=== PATIENT | female | born 1945 | race Caucasian/White ===

== ENCOUNTER 2016-06-26 10:55 | Emergency (ER) | payer BC ==
--- NOTE | 2016-06-26 11:08 | ER Document Report ---
ED Medical Screen (RME) - General Stated Complaint: BLOOD PRESSURE CONCERNS Mode of Arrival: Ambulatory Information source: Patient Notes: 70 y/o F presents to ED c/o intermittent elevated BP. States has checked BP at home and has been elevated in the evenings and the mornings over the last 2 days. States takes BP meds once a day in the mornings. Denies headache, vision changes, chest pain, shortness of breath, or decreased urine output. I have greeted and performed a rapid initial assessment of this patient. A comprehensive ED assessment and evaluation of the patient, analysis of test results and completion of the medical decision making process will be conducted by additional ED providers. Physical Exam - Vital signs Vitals: Temp Pulse Resp BP Pulse Ox 98.0 F 73 20 155/94 H 98 06/26/16 11:02 06/26/16 11:02 06/26/16 11:02 06/26/16 11:02 06/26/16 11:02 - General General appearance: Appears well, Alert In distress: None - Respiratory Respiratory status: No respiratory distress - Neurological Neuro grossly intact: Yes Cognition: Normal Orientation: AAOx4 Salome Coma Scale Eye Opening: Spontaneous Salome Coma Scale Verbal: Oriented Clarence Coma Scale Motor: Obeys Commands Clarence Coma Scale Total: 15 Speech: Normal Motor strength normal: LUE, RUE, LLE, RLE Course - Vital Signs Vital signs: Temp Pulse Resp BP Pulse Ox 98.0 F 73 20 155/94 H 98 06/26/16 11:02 06/26/16 11:02 06/26/16 11:02 06/26/16 11:02 06/26/16 11:02
== END 2016-06-26 12:42 | disposition left against medical advice (07) ==
LOC: ER 10:55
DX: Z53.9 Procedure and treatment not carried out, unspecified reason (principal); R03.0 Elevated blood-pressure reading, without diagnosis of hypertension
CPT/HCPCS: 99283

== ENCOUNTER 2017-09-01 10:30 | Inpatient (IN) | payer MEDICARE, OTHER ==
--- NOTE | 2017-09-01 10:47 | ER Document Report ---
ED Fall - General Stated Complaint: FALL LEFT ANKLE INJURY Time Seen by Provider: 09/01/17 10:42 Information source: Patient Notes: 71-year-old female who states she was walking down a step and accidentally "twisted" her left ankle. She states it was "pointing the other way". She also states she landed on her right knee but denies any pain other than to her left ankle and lower tibia/fibula. She denies any lightheadedness, dizziness, chest pain, or shortness of breath causing the fall. She did have some bleeding from an open wound to the left lateral ankle and was provided pain medications and a gram of Rocephin. Patient is unsure when her last tetanus was provided. TRAVEL OUTSIDE OF THE [place] IN LAST 30 DAYS: No - HPI Occurred: Just prior to arrival Where: Home Context: Fell from standing Associated symptoms: None Location of injury/pain: Other - See above Quality of pain: Achy Severity: Mild Pain Level: 1 Prehospital interventions: Other - See above - Related data Allergies/Adverse Reactions: No Known Allergies Allergy (Verified 09/01/17 11:06) Past Medical History - General Information source: Patient - Social History Smoking Status: Unknown if Ever Smoked Cigarette use (# per day): No Chew tobacco use (# tins/day): No Smoking Education Provided: No Frequency of alcohol use: None Family History: Reviewed & Not Pertinent, Other Patient has suicidal ideation: No Patient has homicidal ideation: No - Past Medical History Cardiac Medical History: Reports: Other - See above Renal/ Medical History: Denies: Hx Peritoneal Dialysis Review of Systems - Review of Systems Constitutional: denies: Fever Cardiovascular: denies: Chest pain, Palpitations Respiratory: denies: Cough, Hemoptysis, Short of breath Gastrointestinal: denies: Nausea, Vomiting Musculoskeletal: Deformity Skin: Other - See above Neurological/Psychological: Other - See above -: Yes All other systems reviewed and negative Physical Exam - Vital signs Vitals: Temp Pulse Resp BP Pulse Ox 98.1 F 72 16 130/74 H 95 09/01/17 10:45 09/01/17 10:45 09/01/17 10:45 09/01/17 10:45 09/01/17 10:45 Notes: Reviewed vital signs and nursing note as charted by RN. CONSTITUTIONAL: Alert and oriented and responds appropriately to questions. Well -appearing; well-nourished HEAD: Normocephalic; atraumatic NECK: Supple without meningismus; non-tender CARD: Regular rate and rhythm; no murmurs RESP: Normal chest excursion without splinting or tachypnea; breath sounds clear and equal bilaterally ABD/GI: Normal bowel sounds; non-distended; soft, non-tender BACK: The back appears normal and is non-tender to palpation EXT: Patient has some pain and swelling with no obvious deformity to the left ankle. There was a small oozing area of blood from the left anterior lateral aspect of the proximal ankle consistent with an open fracture SKIN: See above; also small abrasion to the right knee NEURO: Patient has some limited range of motion to the left ankle secondary to pain and injury. Neurovascularly intact with excellent pulses, toe movement, capillary refill, and sensation PSYCH: The patient's mood and manner are appropriate. Grooming and personal hygiene are appropriate. Course - Re-evaluation Re-evalutation: 09/01/17 10:46 Given the above history and physical examination we will order an x-ray of the left ankle as well as the tibia/fibula. We will attempt to immobilize the left leg and ankle and will place the patient in a splint after the x-ray has been performed. Given what most likely is an open fracture, orthopedics will be paged. I have added a CBC and chemistry secondary to what I believe will be operative management. 09/01/17 11:03 X-ray is recorded showing what appears to be a oblique fracture of the distal tibia/fibula with displacement. I have paged orthopedics. 09/01/17 11:08 I spoke with the orthopedic surgeon who was kind to help the patient. He believes 1 g of Rocephin is sufficient. He is asked me to place the patient into a splint. We will place a posterior with a stirrup splint admit the patient to his service. EKG shows a heart of 75, normal sinus rhythm, minimal left axis deviation, no obvious ST elevation or depression, flattening T waves in leads V3 through V5 with an inverted T-wave in 3 - Vital Signs Vital signs: Temp Pulse Resp BP Pulse Ox 98.1 F 72 16 130/74 H 95 09/01/17 10:45 09/01/17 10:45 09/01/17 10:45 09/01/17 10:45 09/01/17 10:45 Discharge - Discharge Clinical Impression: Open fracture of tibia and fibula, shaft Qualifiers: Encounter type: initial encounter Open fracture type: open type I or II Laterality: left Qualified Code(s): S82.202B - Unspecified fracture of shaft of left tibia, initial encounter for open fracture type I or II; S82.402B - Unspecified fracture of shaft of left fibula, initial encounter for open fracture type I or II; S82.402B - Unspecified fracture of shaft of left fibula, initial encounter for open fracture type I or II Condition: Fair Disposition: ADMITTED INPATIENT Admitting Provider: Tavon Moon Unit Admitted: Surgical Floor
[2017-09-01 11:20] LABS: ABSOLUTE EOSINOPHILS # (AUTO) 0.1 10^3/uL (0.0-0.6); ABSOLUTE MONOCYTES (AUTO) 0.5 10^3/uL (0.1-1.4); BASOPHILS % (AUTO) 0.5 % (0-2); EOSINOPHILS % (AUTO) 1.9 % (0-6); HEMATOCRIT 39.7 % (36.0-47.0); HEMOGLOBIN 13.6 g/dL (12.0-15.5); LYMPHOCYTES % (AUTO) 29.7 % (13-45); MEAN CORPUSCULAR HEMOGLOBIN 29.6 pg (27.0-33.4); MEAN CORPUSCULAR HGB CONC 34.3 g/dL (32.0-36.0); MEAN CORPUSCULAR VOLUME 86 fl (80-97); MONOCYTES % (AUTO) 7.6 % (3-13); PLATELET COUNT 198 10^3/uL (150-450); RED CELL DISTRIBUTION WIDTH 13.2 % (11.5-14.0); SEGMENTED NEUTROPHILS % (AUTO) 60.3 % (42-78); TOTAL CELLS COUNTED % (AUTO) 100 %; WHITE BLOOD COUNT 6.6 10^3/uL (4.0-10.5)
--- NOTE | 2017-09-01 11:20 | RADIOLOGY REPORT (SQ) ---
EXAM DESCRIPTION: ANKLE LEFT COMPLETE COMPLETED DATE/TIME: 09/01/2017 11:02 am REASON FOR STUDY: fall COMPARISON: None. NUMBER OF VIEWS: Three views. TECHNIQUE: AP, lateral, and oblique radiographic images acquired of the left ankle. LIMITATIONS: None. FINDINGS: MINERALIZATION: Normal. BONES: Acute spiral fractures of the distal left tibia and fibular diaphysis. Foreshortening and mil d medial displacement of the fracture site. Distal tibia fibular joint, ankle mortise intact. Small plantar calcaneal spur JOINTS: No tibiotalar joint effusion. No ankle mortise malalignment SOFT TISSUES: Small amount of soft tissue air at the fibular fracture site OTHER: No other significant finding. IMPRESSION: Distal tibia and distal fibula diaphysis fractures TECHNICAL DOCUMENTATION: JOB ID: [id number] [employer]- All Rights Reserved Reading location - IP/workstation name: [email or web address]
--- NOTE | 2017-09-01 11:21 | RADIOLOGY REPORT (SQ) ---
EXAM DESCRIPTION: TIBIA FIBULA LEFT COMPLETED DATE/TIME: 09/01/2017 11:02 am REASON FOR STUDY: 1, fall-ankle pain COMPARISON: None. NUMBER OF VIEWS: Two views. TECHNIQUE: Two radiographic images acquired of the left tibia and fibula to include the knee and ank le in at least one projection. LIMITATIONS: None. FINDINGS: MINERALIZATION: Normal. BONES: Acute comminuted spiral fractures of the distal diaphysis left tibia and fibula. Fibular butt erfly fragment. Mild over riding of fracture fragments with slight medial displacement of the fractu re fragments. SOFT TISSUES: No obvious swelling or foreign body. OTHER: Knee and ankle in the field of view are intact IMPRESSION: Acute comminuted spiral fractures of the distal diaphysis left tibia and fibula. Knee and ankle joint intact TECHNICAL DOCUMENTATION: JOB ID: [id number] [employer]- All Rights Reserved Reading location - IP/workstation name: [email or web address]
[2017-09-01] MEDS ORDERED: FENTANYL CITRATE INJ/PF 100 MCG/2 ML AMPUL IV ONE (11:22)
[2017-09-01 11:35] LABS: ANION GAP 10 (5-19); BLOOD UREA NITROGEN 15 mg/dL (7-20); CALCIUM 9.1 mg/dL (8.4-10.2); CARBON DIOXIDE 25 mmol/L (22-30); CHLORIDE 107 mmol/L (98-107); GLUCOSE 127 mg/dL (75-110); POTASSIUM 3.7 mmol/L (3.6-5.0); SODIUM 141.9 mmol/L (137-145)
--- NOTE | 2017-09-01 12:17 | RADIOLOGY REPORT (SQ) ---
EXAM DESCRIPTION: CHEST 2 VIEWS COMPLETED DATE/TIME: 09/01/2017 11:57 am REASON FOR STUDY: 1, preop COMPARISON: None. EXAM PARAMETERS: NUMBER OF VIEWS: two views TECHNIQUE: Digital Frontal and Lateral radiographic views of the chest acquired. RADIATION DOSE: NA LIMITATIONS: none FINDINGS: LUNGS AND PLEURA: No opacities, masses or pneumothorax. No pleural effusion. MEDIASTINUM AND HILAR STRUCTURES: No masses or contour abnormalities. HEART AND VASCULAR STRUCTURES: Heart normal size. No evidence for failure. BONES: No acute findings. HARDWARE: None in the chest. OTHER: No other significant finding. IMPRESSION: NO ACUTE RADIOGRAPHIC FINDING IN THE CHEST. TECHNICAL DOCUMENTATION: JOB ID: [id number] [employer]- All Rights Reserved Reading location - IP/workstation name: [email or web address]
--- NOTE | 2017-09-01 12:36 | PDOC H&P ---
History of Present Illness Admission Date/PCP: 09/01/17 11:42 BEHZAD ROGERS MD History of Present Illness: ALICIA FUNEZ is a 71 year old female with a past medical history significant only for hypertension who stepped off a step today and sustained an open left distal tib-fib fracture. She was transported to the emergency room. In the process of transportation she received 1 g of Rocephin. The emergency room she was diagnosed with an open left distal third tib-fib fracture. Orthopedics is consulted for fracture management. Past Medical History Cardiac Medical History: Reports: Hypertension Past Surgical History Past Surgical History: Reports: None Social History Information Source: Patient, [facility] Records Smoking Status: Unknown if Ever Smoked Family History Family History: Reviewed & Not Pertinent Parental Family History Reviewed: No Children Family History Reviewed: No Sibling(s) Family History Reviewed.: No Medication/Allergy Allergies/Adverse Reactions: No Known Allergies Allergy (Verified 09/01/17 11:06) Review of Systems All systems: as per [facility] Constitutional: ABSENT: chills, fever(s), headache(s), weight gain, weight loss Cardiovascular: ABSENT: chest pain, dyspnea on exertion, edema, orthropnea, palpitations Gastrointestinal: ABSENT: abdominal pain, constipation, diarrhea, hematemesis, hematochezia, nausea, vomiting Psychiatric: ABSENT: anxiety, depression, homidical ideation, suicidal ideation Physical Exam Vital Signs: Temp Pulse Resp BP Pulse Ox 36.7 C 72 14 142/75 H 96 09/01/17 10:45 09/01/17 10:45 09/01/17 11:01 09/01/17 11:01 09/01/17 11:01 Physical Exam: The patient is an overweight middle-aged white female lying on an emergency room gurney. She is accompanied by 2 daughters. She is alert oriented and appropriate. She is not unduly uncomfortable. General appearance: PRESENT: mild distress Head exam: PRESENT: normocephalic Respiratory exam: PRESENT: unlabored Cardiovascular exam: PRESENT: RRR Pulses: PRESENT: +1 pedal pulses bilateral Vascular exam: PRESENT: normal capillary refill GI/Abdominal exam: PRESENT: soft Rectal exam: PRESENT: deferred Extremities exam: PRESENT: other - Left lower extremity is immobilized in a short above ankle splint. Over the anterior lateral aspect of the distal third of the tib-fib there is a 1 cm oblique laceration with underlying oozing hematogenous fluid. There is some surrounding soft tissue edema. Distal neurovascular examination is intact. On the right lower extremity there is an abrasion that is prepatellar. Neurological exam: PRESENT: alert, awake, oriented to person, oriented to place , oriented to time, oriented to situation. ABSENT: motor sensory deficit Psychiatric exam: PRESENT: appropriate affect, normal mood. ABSENT: homicidal ideation, suicidal ideation Skin exam: PRESENT: dry, intact, warm. ABSENT: cyanosis, rash Results Impressions: Ankle X-Ray 09/01/17 10:31 IMPRESSION: Distal tibia and distal fibula diaphysis fractures Tibia/Fibula X-Ray 09/01/17 10:42 IMPRESSION: Acute comminuted spiral fractures of the distal diaphysis left tibia and fibula. Knee and ankle joint intact Chest X-Ray 09/01/17 11:07 IMPRESSION: NO ACUTE RADIOGRAPHIC FINDING IN THE CHEST. Status: Imported from PACS Assessment & Plan - Diagnosis (1) Open fracture of tibia and fibula, shaft Qualifiers: Encounter type: initial encounter Open fracture type: open type I or II Laterality: left Qualified Code(s): S82.202B - Unspecified fracture of shaft of left tibia, initial encounter for open fracture type I or II; S82.402B - Unspecified fracture of shaft of left fibula, initial encounter for open fracture type I or II; S82.402B - Unspecified fracture of shaft of left fibula, initial encounter for open fracture type I or II Is this a current diagnosis for this admission?: Yes Plan: 71-year-old white female with a noncontributory past medical history and now a grade 1 open left distal tib-fib fracture. Patient last ate at 9 AM. Literature suggests that delaying surgical intervention for by more than 6 hours significantly increases the infection risk. Patient will tentatively be taken to the operating room on an emergent basis for an I&D and internal fixation of the left tib-fib fracture. - Time Time Spent: 50 to 70 Minutes Anticipated discharge: Other Within: Other
[2017-09-01] MEDS ORDERED: FENTANYL CITRATE INJ/PF 100 MCG/2 ML AMPUL ONE ×3 (13:05→15:30)
[2017-09-01] MEDS ORDERED: HYDROMORPHONE HCL INJ/PF 2 MG/ML AMPULE ONE (13:06)
[2017-09-01] MEDS ORDERED: MIDAZOLAM 2 MG/2 ML INJ ONE (13:06)
[2017-09-01] MEDS ORDERED: PROPOFOL INJ 200 MG/20 ML VIAL IV ONE (13:06)
[2017-09-01] MEDS ORDERED: ONDANSETRON HCL INJ/PF 4 MG/2 ML SDV ONE (13:06)
[2017-09-01] MEDS ORDERED: ACETAMINOPHEN 100 ML IV ONE (13:06)
[2017-09-01] MEDS ORDERED: CEFAZOLIN 1 GM/D5W RTU 0 GM/0 ML RTUPB IV ONE (13:28)
[2017-09-01] MEDS ORDERED: CEFAZOLIN 2 GM/D5W RTU 2 GM/50 ML RTUPB IV ONE (13:29)
[2017-09-01] MEDS ORDERED: RINGERS SOLUTION,LACTATED 1,000 ML IV PRN ×2 (13:46→15:30)
--- NOTE | 2017-09-01 14:13 | EKG REPORT ---
SEVERITY:- BORDERLINE ECG - SINUS RHYTHM BORDERLINE LEFT AXIS DEVIATION BORDERLINE T ABNORMALITIES, DIFFUSE LEADS : Confirmed by: Allen Mcallister MD 01-Sep-2017 14:12:40
[2017-09-01] MEDS ORDERED: BACITRACIN INJ 50,000 UNIT VIAL ONE ×2 (14:14→14:21)
--- NOTE | 2017-09-01 15:11 | Operative Report ---
Operative Report DATE OF SURGERY: 09/01/17 PREOPERATIVE DIAGNOSIS: Grade 1 open left tib-fib fracture OPERATION: ORIF left tibia with intramedullary nail. I&D of skin fascia, and bone SURGEON: JABIER LEYVA ANESTHESIA: GA TISSUE REMOVED OR ALTERED: Skin fascia bone to pathology ESTIMATED BLOOD LOSS: 100 PROCEDURE: With the patient supine on the regular table the left lower extremity hindquarter prepped and draped in sterile fashion. The limb was elevated for exsanguination tourniquet inflated to 350 torr. Longitudinal incision was made over the distal half of the patella and sharp dissection was carried incision down to the proximal tibia. With fluoroscopic guidance a pin was placed down into the proximal tibial metadiaphysis and a combined reamer was used to fashion a cortical opening. The reamer and the guide pin are removed. A ball- tipped guide karol is in place down the tibia under fluoroscopic guidance to affect a reduction of the fracture. The femoral canal was then reamed using flexible reamers until a 12.5 mm reamer is passed. Subsequently a Isidra T2 titanium tibial nail 345 mm x 11 mm is passed over the ball-tipped guide karol so that the proximal nail is buried in the bone and the distal aspect of the nail as far distal as possible. A single proximal interlock is placed followed by 3 distal interlocks. A 15 blade is then used to ellipse out the wound from the open fracture and remove the underlying fascia and bone fragments which are protruded. The proximal and distal aspects of the wound and then copiously irrigated with pulse lavage using normal saline with bacitracin. The tourniquet was then deflated. Hemostasis obtained with electrocautery. The wound was then closed with interrupted Vicryl followed by jewell. A sterile compressive dressing posterior plaster splint were applied and the patient's return to the PACU in satisfactory condition.
[2017-09-01] MEDS ORDERED: ONDANSETRON 4 MG TAB.RAPDIS SL PRN (15:32)
--- NOTE | 2017-09-01 15:53 | RADIOLOGY REPORT (SQ) ---
EXAM DESCRIPTION: NO CHG FLUORO; TIBIA FIBULA LEFT COMPLETED DATE/TIME: 09/01/2017 3:43 pm REASON FOR STUDY: ORIF LEFT TIB/FIB COMPARISON: None. FLUOROSCOPY TIME: 1 minutes 8 images saved to PACS. TECHNIQUE: Intra-operative images acquired during surgical procedure to evaluate progress. NUMBER OF IMAGES: 8 LIMITATIONS: None. FINDINGS: Selected images from karol and interlocking screw fixation of distal tibial fracture. Align ment is near anatomic. IMPRESSION: IMAGE(S) OBTAINED DURING PROCEDURE. COMMENT: Quality ID [id number]: Final reports for procedures using fluoroscopy that document radiation exp osure indices, or exposure time and number of fluorographic images (if radiation exposure indices are not available) Please consult full operative report of the attending physician for description of the procedure. TECHNICAL DOCUMENTATION: JOB ID: [id number] [employer]- All Rights Reserved Reading location - IP/workstation name: [email or web address]
--- NOTE | 2017-09-01 15:53 | RADIOLOGY REPORT (SQ) ---
EXAM DESCRIPTION: NO CHG FLUORO; TIBIA FIBULA LEFT COMPLETED DATE/TIME: 09/01/2017 3:43 pm REASON FOR STUDY: ORIF LEFT TIB/FIB COMPARISON: None. FLUOROSCOPY TIME: 1 minutes 8 images saved to PACS. TECHNIQUE: Intra-operative images acquired during surgical procedure to evaluate progress. NUMBER OF IMAGES: 8 LIMITATIONS: None. FINDINGS: Selected images from karol and interlocking screw fixation of distal tibial fracture. Align ment is near anatomic. IMPRESSION: IMAGE(S) OBTAINED DURING PROCEDURE. COMMENT: Quality ID [id number]: Final reports for procedures using fluoroscopy that document radiation exp osure indices, or exposure time and number of fluorographic images (if radiation exposure indices are not available) Please consult full operative report of the attending physician for description of the procedure. TECHNICAL DOCUMENTATION: JOB ID: [id number] [employer]- All Rights Reserved Reading location - IP/workstation name: [email or web address]
[2017-09-01] MEDS ORDERED: MORPHINE SULFATE 10 MG/ML INJ ONE (16:05)
[2017-09-01] MEDS ORDERED: KETOROLAC TROMETHAMINE 60 MG/2 ML SDV ONE (16:05)
[2017-09-01] MEDS ORDERED: PROMETHAZINE HCL INJ 25 MG/1 ML VIAL ONE (16:22)
[2017-09-01] MEDS: MORPHINE SULFATE 10 MG/ML INJ IV PRN (17:16)
[2017-09-01] MEDS ORDERED: MORPHINE SULFATE 10 MG/ML INJ IV PRN (17:40)
[2017-09-01] MEDS ORDERED: (PENDING PHARMACY ID) (Ranitidine Hcl [Zantac 150 Mg Tablet] 150 MG) PO SCH (18:00)
[2017-09-01] MEDS: IBUPROFEN 800 MG in NORMAL SALINE 250 ML IV SCH (18:02)
[2017-09-01] MEDS: FAMOTIDINE 20 MG TABLET PO SCH (18:04)
[2017-09-01] MEDS: CEFAZOLIN SODIUM 2 GM in DEXTROSE 5%-WATER 100 ML IV SCH (21:08)
[2017-09-01] MEDS: ATORVASTATIN CALCIUM 20 MG TABLET PO SCH (21:08)
[2017-09-01] MEDS: OXYCODONE HCL IR 5 MG TABLET PO PRN (21:08)
[2017-09-02] MEDS: OXYCODONE HCL IR 5 MG TABLET PO PRN ×4 (02:15→22:50)
[2017-09-02] MEDS: IBUPROFEN 800 MG in NORMAL SALINE 250 ML IV SCH ×3 (02:15→17:10)
[2017-09-02] MEDS: CEFAZOLIN SODIUM 2 GM in DEXTROSE 5%-WATER 100 ML IV SCH ×3 (05:37→22:51)
[2017-09-02] MEDS: MORPHINE SULFATE 10 MG/ML INJ IV PRN ×5 (05:37→14:26)
[2017-09-02 07:10] LABS: HEMATOCRIT 32.7 % (36.0-47.0); MEAN CORPUSCULAR HEMOGLOBIN 29.8 pg (27.0-33.4); MEAN CORPUSCULAR HGB CONC 34.1 g/dL (32.0-36.0); MEAN CORPUSCULAR VOLUME 87 fl (80-97); PLATELET COUNT 167 10^3/uL (150-450); RED BLOOD COUNT 3.75 10^6/uL (3.72-5.28); RED CELL DISTRIBUTION WIDTH 13.2 % (11.5-14.0); WHITE BLOOD COUNT 8.1 10^3/uL (4.0-10.5)
[2017-09-02 07:11] LABS: HEMOGLOBIN 11.2 g/dL (12.0-15.5)
[2017-09-02 07:28] LABS: ANION GAP 10 (5-19); BLOOD UREA NITROGEN 13 mg/dL (7-20); CALCIUM 9.2 mg/dL (8.4-10.2); CARBON DIOXIDE 26 mmol/L (22-30); CHLORIDE 107 mmol/L (98-107); GLUCOSE 111 mg/dL (75-110); POTASSIUM 3.9 mmol/L (3.6-5.0); SODIUM 143.2 mmol/L (137-145)
--- NOTE | 2017-09-02 07:45 | PDOC PROGRESS REPORT ---
Subjective Progress Note for:: 09/02/17 Reason For Visit: ORIF LEFT TIBIA 71-year-old white female postop day 1 from an open reduction internal fixation of a left grade 1 open distal tib-fib fracture. Patient with complaints of pain today at the level of the fracture. Physical Exam Vital Signs: Temp Pulse Resp BP Pulse Ox 36.7 C 80 18 132/65 H 94 09/02/17 00:00 09/02/17 00:00 09/02/17 00:00 09/02/17 00:00 09/02/17 00:00 Intake & Output 09/01/17 09/02/17 09/03/17 06:59 06:59 06:59 Intake Total 3120 Output Total 1900 Balance 1220 Weight 94.2 kg Physical Exam: Patient is an overweight middle-aged white female lying in bed with the left upper extremity elevated on pillows. She does not appear uncomfortable. General appearance: PRESENT: mild distress Head exam: PRESENT: normocephalic Respiratory exam: PRESENT: unlabored Cardiovascular exam: PRESENT: RRR Vascular exam: PRESENT: normal capillary refill GI/Abdominal exam: PRESENT: soft Rectal exam: PRESENT: deferred Extremities exam: PRESENT: other - Left lower extremity splint is in place. The dressings are dry and intact. There is brisk capillary refill in each of the 5 digits. Sensory examination is intact to light touch. Neurological exam: PRESENT: alert, awake, oriented to person, oriented to place , oriented to time, oriented to situation. ABSENT: motor sensory deficit Psychiatric exam: PRESENT: appropriate affect, normal mood. ABSENT: homicidal ideation, suicidal ideation Skin exam: PRESENT: dry, intact, warm. ABSENT: cyanosis, rash Results Laboratory Results: 09/02/17 06:15 09/02/17 06:15 09/02/17 09/02/17 06:15 06:15 WBC 8.1 RBC 3.75 Hgb 11.2 L D Hct 32.7 L MCV 87 MCH 29.8 MCHC 34.1 RDW 13.2 Plt Count 167 Sodium 143.2 Potassium 3.9 Chloride 107 Carbon Dioxide 26 Anion Gap 10 BUN 13 Creatinine 0.60 Est GFR ( Amer) > 60 Est GFR (Non-Af Amer) > 60 Glucose 111 H Calcium 9.2 Impressions: Fluoroscopy 09/01/17 00:00 IMPRESSION: IMAGE(S) OBTAINED DURING PROCEDURE. Ankle X-Ray 09/01/17 10:31 IMPRESSION: Distal tibia and distal fibula diaphysis fractures Tibia/Fibula X-Ray 09/01/17 10:42 IMPRESSION: Acute comminuted spiral fractures of the distal diaphysis left tibia and fibula. Knee and ankle joint intact Chest X-Ray 09/01/17 11:07 IMPRESSION: NO ACUTE RADIOGRAPHIC FINDING IN THE CHEST. Status: Imported from PACS Assessment & Plan - Diagnosis (1) Open fracture of tibia and fibula, shaft Qualifiers: Encounter type: initial encounter Open fracture type: open type I or II Laterality: left Qualified Code(s): S82.202B - Unspecified fracture of shaft of left tibia, initial encounter for open fracture type I or II; S82.402B - Unspecified fracture of shaft of left fibula, initial encounter for open fracture type I or II; S82.402B - Unspecified fracture of shaft of left fibula, initial encounter for open fracture type I or II Is this a current diagnosis for this admission?: Yes Plan: 71-year-old white female status post ORIF of a left open tib-fib fracture yesterday. Plan will be for mobilization with physical therapy today and touchdown weightbearing restriction. Anticipate discharge home tomorrow with home health services.
[2017-09-02] MEDS: FAMOTIDINE 20 MG TABLET PO SCH ×2 (09:29→17:11)
[2017-09-02] MEDS: LORATADINE 10 MG TABLET PO SCH (09:33)
[2017-09-02] MEDS: LOSARTAN POTASSIUM 50 MG TABLET PO SCH (09:34)
[2017-09-02] MEDS: MULTIVITAMIN TABLET PO SCH (09:35)
[2017-09-02] MEDS: METOPROLOL SUCCINATE 50 MG TAB.SR.24H PO SCH (09:36)
[2017-09-02] MEDS: CHOLECALCIFEROL (D3) 1,000 UNIT TABLET PO SCH (09:36)
[2017-09-02] MEDS: CYANOCOBALAMIN (VITAMIN B-12) 1,000 MCG TABLET PO SCH (09:36)
[2017-09-02] MEDS: HYDROCHLOROTHIAZIDE 25 MG TABLET PO SCH (09:37)
[2017-09-02] MEDS: ASPIRIN 81 MG TABLET, ENT COATED PO SCH (09:37)
[2017-09-02] MEDS: AMLODIPINE BESYLATE 10 MG TABLET PO SCH (09:37)
[2017-09-02] MEDS: RALOXIFENE HCL 60 MG TABLET PO SCH (09:38)
[2017-09-02] MEDS ORDERED: (PENDING PHARMACY ID) (Potassium Gluconate [Potassium] 99 MG) PO SCH (10:00)
[2017-09-02] MEDS ORDERED: (PENDING PHARMACY ID) (Losartan/Hydrochlorothiazide [Losartan-Hctz 100-25 Mg Tab] 1 EACH) PO SCH (10:00)
[2017-09-02] MEDS ORDERED: (PENDING PHARMACY ID) (Magnesium [Magnesium] 250 MG) PO SCH (10:00)
[2017-09-02] MEDS: ATORVASTATIN CALCIUM 20 MG TABLET PO SCH (22:50)
[2017-09-03] MEDS: IBUPROFEN 800 MG in NORMAL SALINE 250 ML IV SCH ×2 (01:20→11:50)
[2017-09-03] MEDS: CEFAZOLIN SODIUM 2 GM in DEXTROSE 5%-WATER 100 ML IV SCH (05:45)
[2017-09-03] MEDS: OXYCODONE HCL IR 5 MG TABLET PO PRN ×2 (05:45→11:28)
--- NOTE | 2017-09-03 06:50 | PDOC DISCHARGE SUMMARY ---
General - Admit/Disc Date/PCP Admission Date/Primary Care Provider: 09/01/17 11:42 BEHZAD ROGERS MD Discharge Date: 09/03/17 - Discharge Diagnosis (1) Open fracture of tibia and fibula, shaft Is this a current diagnosis for this admission?: Yes - Additional Information Resuscitation Status: Full Code Discharge Diet: As Tolerated, Regular Discharge Activity: Balance Activity w/Rest, No Driving, No tub bath, Other - Touchdown weightbearing restriction left lower extremity Home Medications: Amlodipine Besylate [Norvasc 10 mg Tablet] 10 mg PO DAILY 09/01/17 Aspirin [Aspirin EC] 81 mg PO DAILY 09/01/17 Atorvastatin Calcium [Lipitor 20 mg Tablet] 20 mg PO QHS 09/01/17 Cholecalciferol (Vitamin D3) [Vitamin D3 1000 Unit Tablet] 1,000 unit PO DAILY 09/01/17 Cyanocobalamin (Vitamin B-12) [Vitamin B-12] 1,000 mcg PO DAILY 09/01/17 Loratadine [Claritin 10 mg Tablet] 10 mg PO DAILY 09/01/17 Losartan/Hydrochlorothiazide [Losartan-Hctz 100-25 mg Tab] 1 each PO DAILY 09/01 Magnesium 250 mg PO DAILY 09/01/17 Metoprolol Succinate [Toprol Xl 50 mg Tab.sr] 50 mg PO DAILY 09/01/17 Multivitamin [Tab-A-Palak (Multiple Vitamin) Tablet] 1 tab PO DAILY 09/01/17 Potassium Gluconate [Potassium] 99 mg PO DAILY 09/01/17 Raloxifene HCl [Evista 60 mg Tablet] 60 mg PO DAILY 09/01/17 Ranitidine HCl [Zantac 150 mg Tablet] 150 mg PO BID 09/01/17 History of Present Illness History of Present Illness: The patient is a 71-year-old white female who is descending stairs, slipped and fell, and sustained an open left distal tib-fib fracture. She was administered Rocephin in the ambulance and presented to the emergency room. She was taken emergently to the operating room for an I&D and internal fixation. Hospital Course Hospital Course: The patient was taken emergently to the operating room for an I&D and internal fixation. She tolerated the procedure without complication. She was returned to floor in satisfactory condition. She seen by physical therapy for touchdown weightbearing restriction on the left lower extremity. Made some limited progress of her stay and better progress the second day. She is subsequent ready for discharge home with a persistent left lower extremity touchdown weightbearing restriction. Physical Exam Vital Signs: Temp Pulse Resp BP Pulse Ox 37.1 C 73 15 109/51 L 97 09/02/17 23:17 09/02/17 23:17 09/02/17 23:17 09/02/17 23:17 09/02/17 23:17 Intake & Output 09/01/17 09/02/17 09/03/17 06:59 06:59 06:59 Intake Total 3120 1710 Output Total 1900 1250 Balance 1220 460 Weight 94.2 kg General appearance: PRESENT: no acute distress Head exam: PRESENT: normocephalic Respiratory exam: PRESENT: unlabored Cardiovascular exam: PRESENT: RRR Vascular exam: PRESENT: normal capillary refill GI/Abdominal exam: PRESENT: soft Rectal exam: PRESENT: deferred Extremities exam: PRESENT: other - Left lower extremity dressing clean dry and intact. There is brisk capillary refill to each of the 5 digits on the left foot. Sensory examination is intact to light touch. Neurological exam: PRESENT: alert, awake, oriented to person, oriented to place , oriented to time, oriented to situation. ABSENT: motor sensory deficit Psychiatric exam: PRESENT: appropriate affect, normal mood. ABSENT: homicidal ideation, suicidal ideation Skin exam: PRESENT: dry, intact, warm. ABSENT: cyanosis, rash Results Laboratory Results: 09/02/17 06:15 09/02/17 06:15 09/02/17 09/02/17 06:15 06:15 WBC 8.1 RBC 3.75 Hgb 11.2 L D Hct 32.7 L MCV 87 MCH 29.8 MCHC 34.1 RDW 13.2 Plt Count 167 Sodium 143.2 Potassium 3.9 Chloride 107 Carbon Dioxide 26 Anion Gap 10 BUN 13 Creatinine 0.60 Est GFR ( Amer) > 60 Est GFR (Non-Af Amer) > 60 Glucose 111 H Calcium 9.2 Impressions: Fluoroscopy 09/01/17 00:00 IMPRESSION: IMAGE(S) OBTAINED DURING PROCEDURE. Ankle X-Ray 09/01/17 10:31 IMPRESSION: Distal tibia and distal fibula diaphysis fractures Tibia/Fibula X-Ray 09/01/17 10:42 IMPRESSION: Acute comminuted spiral fractures of the distal diaphysis left tibia and fibula. Knee and ankle joint intact Chest X-Ray 09/01/17 11:07 IMPRESSION: NO ACUTE RADIOGRAPHIC FINDING IN THE CHEST. Status: Imported from PACS Qualifiers - * PATIENT BEING DISCHARGED WITH ANY OF THE FOLLOWING DIAGNOSIS: No VTE patient discharged on overlapping Therapy?: Yes Plan Discharge Plan: Patient be discharged home with a touchdown weightbearing restriction on left lower extremity. Home health nursing and home health physical therapy will be arranged by social work. Patient will be afforded a wheeled walker and a bedside commode. Follow-up with Dr. Moon and [facility] for surgery in 2 weeks for staple removal. Patient will adhere to a touchdown weightbearing restriction on left lower extremity. Time Spent: Less than 30 Minutes
[2017-09-03] MEDS: AMLODIPINE BESYLATE 10 MG TABLET PO SCH (08:39)
[2017-09-03] MEDS: CHOLECALCIFEROL (D3) 1,000 UNIT TABLET PO SCH (08:39)
[2017-09-03] MEDS: ASPIRIN 81 MG TABLET, ENT COATED PO SCH (08:40)
[2017-09-03] MEDS: FAMOTIDINE 20 MG TABLET PO SCH (08:40)
[2017-09-03] MEDS: CYANOCOBALAMIN (VITAMIN B-12) 1,000 MCG TABLET PO SCH (08:40)
[2017-09-03] MEDS: HYDROCHLOROTHIAZIDE 25 MG TABLET PO SCH (08:40)
[2017-09-03] MEDS: LORATADINE 10 MG TABLET PO SCH (08:41)
[2017-09-03] MEDS: RALOXIFENE HCL 60 MG TABLET PO SCH (08:41)
[2017-09-03] MEDS: METOPROLOL SUCCINATE 50 MG TAB.SR.24H PO SCH (08:41)
[2017-09-03] MEDS: LOSARTAN POTASSIUM 50 MG TABLET PO SCH (08:41)
[2017-09-03] MEDS: MULTIVITAMIN TABLET PO SCH (08:41)
[2017-09-03 12:50] VITALS: BP 132/61
== END 2017-09-03 12:50 | disposition home health service (06) | DRG 494 ==
LOC: ER 10:30 → EH 11:42 → 4W 16:31
PROVIDERS: ADMIT Orthopaedic Surgery; ATTEND Orthopaedic Surgery
PROC: 0QSH06Z Reposition Left Tibia with Intramedullary Internal Fixation Device, Open Approach (ICD-10-PCS; 2017-09-01)
PROC: 0QSK06Z Reposition Left Fibula with Intramedullary Internal Fixation Device, Open Approach (ICD-10-PCS; principal; 2017-09-01 14:00)
DX: S82.202B Unspecified fracture of shaft of left tibia, initial encounter for open fracture type I or II (principal); S82.402B Unspecified fracture of shaft of left fibula, initial encounter for open fracture type I or II; W10.9XXA Fall (on) (from) unspecified stairs and steps, initial encounter; I10 Essential (primary) hypertension; Z88.6 Allergy status to analgesic agent; Z79.899 Other long term (current) drug therapy
CPT/HCPCS: 01392; 36415; 71046; 80048; 85025; 85027; 93005; 93010; 96374; 99285; C1713; G8978-GP; G8979-GP; J0131; J0690; J1170; J1741; J1885; J2250; J2270; J2405; J2550; J2704; J3010; J3490; J7050; J7120; S0119

== ENCOUNTER 2018-12-28 12:33 | Emergency (ER) | payer MEDICARE, OTHER ==
--- NOTE | 2018-12-28 13:01 | ER Document Report ---
HPI - HPI Patient complains to provider of: left foot pain Time Seen by Provider: 12/28/18 12:54 Pain Level: 2 Context: 73-year-old female with history of an ORIF of the left tibia presents the emergency department with chief complaint of left foot pain after a fall yesterday. She said she was walking on a wet floor and she somehow slipped and when she landed she realized she had some left foot pain. She states she did hit her head with no loss of consciousness, not on anticoagulation. Patient is able to bear weight on it as she came in with a postop shoe. Patient does have range of motion of her foot. Denies any numbness or tingling of the extremity. Denies weakness. No other complaints Past Medical History - Social History Smoking Status: Unknown if Ever Smoked Family History: Reviewed & Not Pertinent - Past Medical History Cardiac Medical History: Reports: Hx Hypertension Renal/ Medical History: Denies: Hx Peritoneal Dialysis - Immunizations Hx Pneumococcal Vaccination: 05/07/16 Vertical Provider Document - CONSTITUTIONAL Notes: PHYSICAL EXAMINATION: Reviewed vital signs and charting by RN GENERAL: Alert, interacts well. No acute distress. HEAD: Normocephalic, atraumatic. EYES: Pupils equal and round. Extraocular movements intact. ENT: Oral mucosa moist, tongue midline. NECK: Full range of motion. Trachea midline. EXTREMITIES: Moves all 4 extremities spontaneously. Slight edema on the dorsal aspect of the left midfoot, 2+ DP pulses bilateral, brisk cap refill of the left foot, tenderness to palpation over the fourth and fifth metatarsal area PSYCH: Normal affect, normal mood. SKIN: Warm, dry, normal turgor. No rashes or lesions noted. - INFECTION CONTROL TRAVEL OUTSIDE OF THE [place] IN LAST 30 DAYS: No Course - Re-evaluation Re-evalutation: 12/28/18 13:04 Overall well-appearing and able to bear weight on the foot. Plan is to get an x-ray of the left foot. Patient not on anticoagulation and although she struck her head I do not feel CT head is necessary at this point as the injury happened yesterday she has normal mental status. 12/28/18 13:48 X-ray was negative for any acute fracture or dislocation. Patient most likely sustained a low degree sprain of the left ankle. Patient is Atilio in a postop shoe and will give her the option to continue wearing that or for an Shahriar wrap. Patient is stable for discharge at this time and has been given strict return precautions. - Vital Signs Vital signs: Temp Pulse Resp BP Pulse Ox 98.1 F 72 16 146/75 H 96 12/28/18 12:39 12/28/18 12:39 12/28/18 12:39 12/28/18 12:39 12/28/18 12:39 Discharge - Discharge Clinical Impression: Injury of left foot Qualifiers: Encounter type: initial encounter Qualified Code(s): S99.922A - Unspecified injury of left foot, initial encounter Condition: Good Disposition: HOME, SELF-CARE Additional Instructions: Your x-ray does not show any acute fracture. You have a sprained ankle. Keep the area elevated, apply ice 20 minutes every 2 hours, and use crutches as needed. You should take ibuprofen 600 mg every 6 hours as needed for pain. Please return if you have worsening pain and swelling, fever greater than 101, you notice spreading redness from the area, or have any other symptoms that are concerning to you. Please follow-up with orthopedic surgery if your symptoms have not improved in the next 2-3 weeks. Referrals: BEHZAD ROGERS MD [Primary Care Provider] - Follow up as needed
--- NOTE | 2018-12-28 13:40 | RADIOLOGY REPORT (SQ) ---
EXAM DESCRIPTION: FOOT LEFT COMPLETE COMPLETED DATE/TIME: 12/28/2018 1:16 pm REASON FOR STUDY: fall, pain in area of 4th/5th metatarsals COMPARISON: Left tibia/ fibula 09/01/2017. NUMBER OF VIEWS: Three views. TECHNIQUE: AP, lateral and oblique radiographic images acquired of the left foot. LIMITATIONS: None. FINDINGS: MINERALIZATION: Osteopenia. BONES: No acute fracture or dislocation. Remote fracture at the distal fibula. Postsurgical changes with orthopedic hardware at the distal tibia. SOFT TISSUES: No soft tissue swelling. No radiopaque foreign body. IMPRESSION: NO RADIOGRAPHIC EVIDENCE OF ACUTE INJURY AT THE LEFT FOOT. TECHNICAL DOCUMENTATION: JOB ID: [id number] [employer]- All Rights Reserved Reading location - IP/workstation name: [email or web address]
[2018-12-28 13:55] VITALS: BP 137/75
== END 2018-12-28 14:04 | disposition home or self-care (01) ==
LOC: ER 12:33
DX: S99.922A Unspecified injury of left foot, initial encounter (principal); W01.0XXA Fall on same level from slipping, tripping and stumbling without subsequent striking against object, initial encounter; I10 Essential (primary) hypertension
CPT/HCPCS: 99283